=== PATIENT | male | born 1995 | race Caucasian/White ===

== ENCOUNTER 2016-11-08 18:07 | Emergency (ER) | payer OTHER ==
[2016-11-08] MEDS ORDERED: ADENOSINE 6 MG/2 ML VIAL ONE ×2 (18:14→18:25)
[2016-11-08] MEDS ORDERED: ADENOSINE 6 MG/2 ML VIAL IVP ONE ×2 (18:15→18:25)
[2016-11-08] MEDS ORDERED: NS 1,000 ML IV ONE ×3 (18:15→20:14)
--- NOTE | 2016-11-08 18:17 | CPEKG ---
Heart Rate: 162 RR Interval: 370 P-R Interval: 88 QRSD Interval: 94 QT Interval: 312 QTC Interval: 513 P [place]: 0 QRS [place]: 115 T Wave [place]: -37 EKG Severity - ABNORMAL ECG - EKG Impression: SINUS TACHYCARDIA EKG Impression: LEFT POSTERIOR FASCICULAR BLOCK EKG Impression: INFERIOR Q WAVES, PROBABLY NORMAL VARIATION EKG Impression: ABNORMAL T, CONSIDER ISCHEMIA, INFERIOR LEADS EKG Impression: PROLONGED QT INTERVAL Electronically Signed By: Doug Munoz 08-Nov-2016 20:06:27
--- NOTE | 2016-11-08 18:30 | EDPHY ---
H & P HPI/ROS: Chief complaint: Seizure History of present illness: This is a 21-year-old male brought to the emergency department by EMS after having a witnessed seizure. Patient does not have a history of seizures. EMS reports patient was a constitution party when he had a witnessed tonic-clonic seizure. EMS does report a postictal state. Patient does admit to smoking marijuana today and did take some Adderall last night which he does not use on a regular basis. In addition EMS has noted patient be significantly tachycardic in the 160s. Patient states he can feel his heart pounding. No alleviating or aggravating factors noted. No other associated signs or symptoms. Review of systems: A 10 point review of systems was obtained and other than described above was neck - Physical Exam Exam: General Appearance: Alert, nontoxic. Eyes: Pupils equal and round no pallor or injection. ENT, Mouth: Mucous membranes moist. Tongue biting is noted. Respiratory: There are no retractions, lungs are clear to auscultation. Cardiovascular: Tachycardic with regular rhythm. Gastrointestinal: Abdomen is soft and nontender, no masses, bowel sounds normal. Neurological: Alert and oriented x4. Cranial nerves 2-12 grossly intact. Strength and sensation intact and symmetrical. Skin: Warm and dry, no rashes. Musculoskeletal: Neck is supple nontender. Extremities are symmetrical, full range of motion. Psychiatric: Patient is oriented X 3, there is no agitation. Constitutional: Initial Vital Signs Temperature (C) 37.3 C 11/08/16 18:07 Heart Rate 161 H 11/08/16 18:07 Respiratory Rate 18 11/08/16 18:07 Blood Pressure 155/93 H 11/08/16 18:07 O2 Sat (%) 94 11/08/16 18:07 O2 Delivery Mode Room Air Allergies/Adverse Reactions: No Known Allergies Allergy (Unverified 11/08/16 18:38) Home Medications: Medication Instructions Recorded Diltiazem Sr [Cardizem Sr] 90 mg PO BID #6 cap.sr.12h 11/08/16 Medical Decision Making - Diagnostics Imaging: CT scan of the head with and without contrast negative for acute findings ED Course/Re-evaluation: Patient seen in conjunction with my secondary supervising physician Dr. Doug Munoz. Patient presents to the emergency department with EMS after what appears to be a first-time seizure. Blood studies obtained, leukocytosis and decreased bicarb consistent with a seizure. CT scan of the head negative. The patient is significantly tachycardic. Initial rhythm appeared to be SVT. This was evaluated by Dr. Doug Munoz. Patient was given 2 rounds of adenosine with essentially no effect. On-call Cardiology, Dr. Lopez was consulted. He came to the emergency room for evaluation. He believes this is likely sinus tachycardia. He recommends IV hydration, Ativan and Cardizem. This was performed and the patient's tachycardia improved. Patient is feeling well. He will be discharged home. He is referred to Neurology for continued evaluation of his first-time seizure. Strict seizure precautions have been discussed at length with him. He is asked to follow up with Cardiology for his tachycardia, he is given a prescription of diltiazem. Home care is discussed. Strict return precautions are given. Patient voiced understanding and agreement with plan. Differential Diagnosis: Included but not limited to seizure secondary to epilepsy, drugs common cardiac dysrhythmias, infectious pathology, intracranial lesion or bleed - Data Points Laboratory Results: Laboratory Results 11/08/16 18:20 11/08/16 18:20 Medications Given: Discontinued Medications Adenosine (Adenosine) 12 mg IVP EDNOW ONE Stop: 11/08/16 18:16 Last Admin: 11/08/16 18:15 Dose: 12 mg Adenosine (Adenosine) 12 mg IVP EDNOW ONE Stop: 11/08/16 18:26 Last Admin: 11/08/16 18:25 Dose: 12 mg Diltiazem HCl (Cardizem 25 Mg/5 Ml Vial) 10 mg IVP EDNOW ONE Stop: 11/08/16 19:19 Last Admin: 11/08/16 20:14 Dose: 10 mg Sodium Chloride (Ns) 1,000 mls @ 0 mls/hr IV ONCE ONE PRN Reason: Wide Open Stop: 11/08/16 20:15 Last Admin: 11/08/16 20:17 Dose: 1,000 mls Sodium Chloride (Ns) 1,000 mls @ 0 mls/hr IV ONCE ONE PRN Reason: Wide Open Stop: 11/08/16 19:11 Last Admin: 11/08/16 19:10 Dose: 1,000 mls Sodium Chloride (Ns) 1,000 mls @ 0 mls/hr IV ONCE ONE PRN Reason: Wide Open Stop: 11/08/16 18:16 Last Admin: 11/08/16 18:15 Dose: 1,000 mls Lorazepam (Ativan Injection) 1 mg IVP EDNOW ONE Stop: 11/08/16 18:59 Last Admin: 11/08/16 19:28 Dose: Not Given Lorazepam (Ativan Injection) 1 mg IVP EDNOW ONE Stop: 11/08/16 19:00 Last Admin: 11/08/16 19:28 Dose: 1 mg Lorazepam (Ativan) 1 mg PO EDNOW ONE Stop: 11/08/16 21:17 Last Admin: 11/08/16 21:15 Dose: 1 mg Departure - Departure Disposition: Home, Routine, Self-Care Clinical Impression: Seizure, Tachycardia Condition: Good Instructions: New-Onset Seizure in Adults (ED), Tachycardia (ED) Additional Instructions: Please follow up with Neurology for your seizure Please follow-up with Cardiology for your tachycardia Take Cardizem up to twice a day if your heart rate remains above 120 You must maintain seizure precautions until cleared by Neurology. Do not drive , do not bathe or swim, do not perform any activities where if you had a seizure you could injure or kill yourself or someone else. Do not drink alcohol Do not use illicit drugs including Adderall If symptoms worsen or new symptoms develop return to the emergency department for recheck Referrals: Patient,NotPresent [Unknown] - As per Instructions Edil Arriaga MD [Medical Doctor] - As per Instructions Hemal Lopez MD [Medical Doctor] - As per Instructions Manjinder Glass MD [Medical Doctor] - As per Instructions Prescriptions: Diltiazem Sr [Cardizem Sr] 90 mg PO BID #6 cap.sr.12h
[2016-11-08 18:36] VITALS: TEMP 99.1
--- NOTE | 2016-11-08 18:36 | CPEKG ---
Heart Rate: 150 RR Interval: 400 P-R Interval: 104 QRSD Interval: 94 QT Interval: 280 QTC Interval: 443 P [place]: 0 QRS [place]: 109 T Wave [place]: -64 EKG Severity - ABNORMAL ECG - EKG Impression: SINUS TACHYCARDIA EKG Impression: BORDERLINE RIGHT AXIS DEVIATION EKG Impression: ABNORMAL T, CONSIDER ISCHEMIA, INFERIOR LEADS Electronically Signed By: Doug Munoz 08-Nov-2016 20:06:27
--- NOTE | 2016-11-08 18:39 | CPEKG ---
Heart Rate: 137 RR Interval: 438 P-R Interval: 140 QRSD Interval: 96 QT Interval: 300 QTC Interval: 453 P [place]: 59 QRS [place]: 106 T Wave [place]: -56 EKG Severity - ABNORMAL ECG - EKG Impression: SINUS TACHYCARDIA WITH IRREGULAR RATE 91-144 EKG Impression: BORDERLINE RIGHT AXIS DEVIATION EKG Impression: ABNORMAL T, CONSIDER ISCHEMIA, INFERIOR LEADS Electronically Signed By: Doug Munoz 08-Nov-2016 20:06:27
[2016-11-08] MEDS ORDERED: IOPAMIDOL (ISOVUE-300) 100 ML BTL IV ONE (18:47)
[2016-11-08] MEDS ORDERED: LORazepam 2 MG/ML INJ IVP ONE ×2 (18:58→18:59)
[2016-11-08 18:59] LABS: % IMMATURE GRANULYOCYTES 0.6 % (0.0-1.1); ABSOLUTE IMMATURE GRANULOCYTES 0.09 10^3/uL (0.00-0.10); ADD DIFF? NO; ATYPICAL LYMPHOCYTE FLAG 40 (0-99); FRAGMENT RBC FLAG 0 (0-99); HEMATOCRIT 51.2 % (40.0-51.0); HEMOGLOBIN 16.7 g/dL (13.7-17.5); LEFT SHIFT FLG 0 (0-99); MEAN CELL HEMOGLOBIN 30.7 pg (27.9-34.1); MEAN CELL HEMOGLOBIN CONCENTR. 32.6 g/dL (32.4-36.7); MEAN CELL VOLUME 94.1 fL (81.5-99.8); MEAN PLATELET VOLUME 11.6 fL (8.7-11.7); PLATELET COUNT 427 10^3/uL (150-400); RED BLOOD CELL COUNT 5.44 10^6/uL (4.40-6.38); RED CELL DISTRIBUTION WIDTH 12.9 % (11.5-15.2)
[2016-11-08 19:00] LABS: ADD MORPH? NO; ADD SCAN? YES; LIPEMIA HEMOLYSIS FLAG 80 (0-99); PLATELET CLUMPS FLAG 0 (0-99)
[2016-11-08 19:10] LABS: ANION GAP 28 mEq/L (8-16); CALCIUM 10.4 mg/dL (8.5-10.4); CARBON DIOXIDE 13 mEq/l (22-31); CHLORIDE 100 mEq/L (97-110); CREATININE 1.3 mg/dL (0.7-1.3); GLOMERULAR FILTRATION RATE > 60; GLUCOSE 186 mg/dL (70-100); POTASSIUM 3.9 mEq/L (3.5-5.2); SODIUM 141 mEq/L (134-144)
[2016-11-08] MEDS ORDERED: DILTIAZEM 25 MG/5 ML VIAL IVP ONE (19:18)
[2016-11-08 19:22] LABS: TROPONIN I < 0.012 ng/mL (0-0.034)
[2016-11-08 19:51] LABS: SCAN POSITIVE
[2016-11-08 19:59] LABS: PLATELET ESTIMATE INCREASED (ADEQ); POLYCHROMASIA 1+
[2016-11-08] MEDS ORDERED: LORazepam 1 MG TAB ONE (21:12)
[2016-11-08] MEDS ORDERED: LORazepam 1 MG TAB PO ONE (21:16)
[2016-11-08 21:17] VITALS: BP 145/91; PULSE 119; RESP 16; O2SAT 96
== END 2016-11-08 21:27 | disposition home or self-care (01) ==
DX: R56.9 Unspecified convulsions (principal); R00.0 Tachycardia, unspecified
CPT/HCPCS: 82947-QW; 96374; J0153; J2060; Q9967

== ENCOUNTER → 2016-11-26 | Outpatient (CLI) | payer OTHER ==
[~2016-11-26] MED LIST: GADOBUTROL 10 ML VIAL IVP ONE
== END ==
LOC: FCPNEURO 10:33
PROVIDERS: ATTEND Psychiatry & Neurology Neurology
DX: R56.9 Unspecified convulsions (principal); R93.0 Abnormal findings on diagnostic imaging of skull and head, not elsewhere classified
CPT/HCPCS: A9585